=== PATIENT | male | born 1985 | race Caucasian/White ===

== ENCOUNTER 2019-12-17 21:04 | Emergency (ER) | payer OTHER ==
[~2019-12-17] VITALS: Ht 180.3 cm; Wt 96.0 kg
[2019-12-17 21:04] VITALS: BP 140/70
--- NOTE | 2019-12-17 21:11 | PHYS DOC ---
General Adult EDM: Chief Complaint: EARACHE/EAR PAIN HPI: HPI: ' '".. I got ear pain.. Headache. I am worried I got a brain tumor... I been hurting for the last 2 days... My ears buzz... My anabaptist areas hurt really bad... My sinuses feel full... having problems sleeping. ... I decided I feel like to get a brain tumor because I cannot think of anything else this could be..."I don't graduate until I think July... A lot of stress with school recently... 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 Patient has not had any recent overseas travel. Has not had any specific ill contacts. Has not had any recent travel outside the [place] area. Patient is up-to-date with multiple vaccinations. Patient denies any history of immunosuppression, no fevers, no chills, has some mild nasal congestion. Patient is very active physically and does PT regularly. Patient normally follows at [place] for care. No history of trauma.. No specific ill contacts. Review of Systems: Review of Systems: Constitutional: Denies fever or chills Eyes: Denies change in visual acuity HENT: nasal congestion , hearing issues, sinus fullness, Respiratory: Denies cough or shortness of breath Cardiovascular: Denies chest pain or edema GI: Denies abdominal pain, nausea, vomiting, bloody stools or diarrhea : Denies dysuria Musculoskeletal: Denies back pain or joint pain Integument: Denies rash Neurologic: Complains of headache. Denies, focal weakness . Has complaints of hearing sensory changes , buzzing Endocrine: Denies polyuria or polydipsia Lymphatic: Denies swollen glands Psychiatric: Denies depression or anxiety Family History: Family History: No specific father history does not know her mother's medical history. Sister is healthy. Current Medications: Current Meds: See nursing for home meds. Allergies: Allergies: No known drug allergies. Physical Exam: PE: Constitutional: Well developed, well nourished, reports moderate distress, non- toxic appearance. [] HENT: Normocephalic, atraumatic, bilateral external ears normal, oropharynx moist, no oral exudates, nose l swollen turbinates with clear rhinorrhea.. Reports sinus fullness. Reports tenderness over temporal areas bilaterally. No tenderness over temporal artery. Complains of buzzing in ears. Small amount of fluid behind TMs. Eyes: PERRLA, EOMI, conjunctiva normal, no discharge. [] Neck: Normal range of motion, some upper neck muscle tenderness, supple, no stridor. [] Cardiovascular:Heart rate regular rhythm, no murmur [] Lungs & Thorax: Bilateral breath sounds equal at apex on auscultation [] Abdomen: Bowel sounds normal, soft, no tenderness, no masses, no pulsatile masses. [] Skin: Warm, dry, no erythema, no rash. [] Back: No tenderness, no CVA tenderness. [] Extremities: No tenderness, no cyanosis, no clubbing, ROM intact, no edema. [] Neurologic: Alert and oriented X 3, normal motor function, normal sensory function, no focal deficits noted. [] DTRs +2 patellar and brachial. Exchange Administrator equal. No drift. Psychologic: Affect very anxious judgement normal, mood normal. [] EKG: EKG: [] Radiology/Procedures: Radiology/Procedures: [][place] [address] IMAGING REPORT Signed PATIENT: MIRIAN DUNN ACCOUNT: [id number] : 1985 LOCATION: ER AGE: 34 SEX: M EXAM STATUS: REG ER ORD. PHYSICIAN: JUDITH SANCHEZ MD REASON: neuro symptoms PROCEDURE: CT HEAD AND MAXILLOFACIAL WO EXAM: 1. CT HEAD WITHOUT CONTRAST. 2. CT FACIAL BONES WITHOUT CONTRAST. HISTORY: Headache, ear pain, paresthesias. TECHNIQUE: Computed tomography of the head and facial bones was performed without intravenous contrast. One or more of the following individualized dose reduction techniques were utilized for this examination: 1. Automated exposure control. 2. Adjustment of the mA and/or kV according to patient size. 3. Use of iterative reconstruction technique. COMPARISON: None. FINDINGS: There is no intracranial hemorrhage. Smith-white differentiation is preserved. The ventricles are normal in size and position. The temporal bones are unremarkable. The calvarium reveals no suspicious lesions. No facial fractures are identified. The visualized paranasal sinuses appear clear. The orbits are unremarkable. IMPRESSION: 1. No acute intracranial findings. 2. Negative examination of the paranasal sinuses and temporal bones. Electronically signed by: Saloni Calvert MD (12/18/2019 12:00 AM) [facility] DICTATED AND SIGNED BY: GWEN CALVERT MD DATE: 12/18/19 0000 CC: JUDITH SANCHEZ MD; PCP,UNKNOWN ~ Heart Score: Risk Factors: Risk Factors: DM, Current or recent (<one month) smoker, HTN, HLP, family history of CAD, obesity. Risk Scores: Score 0 - 3: 2.5% MACE over next 6 weeks - Discharge Home Score 4 - 6: 20.3% MACE over next 6 weeks - Admit for Clinical Observation Score 7 - 10: 72.7% MACE over next 6 weeks - Early Invasive Strategies Course & Med Decision Making: Course & Med Decision Making Pertinent Labs and Imaging studies reviewed. (See chart for details) Patient follow-up Rd. Take Tylenol and ibuprofen for pain. Follow-up primary care. Return if any concerns. Wear a mask over nose and mouth at all times. Practice social distancing. Return if any concerns. Impression: 1. Suspect tension headache 2. Possible viral syndrome [] Dragon Disclaimer: Kelly Disclaimer: This electronic medical record was generated, in whole or in part, using a voice recognition dictation system. Departure Departure: Disposition: 01 [place] HOME SELF CARE/HOMELESS Condition: STABLE Referrals: PCP,UNKNOWN (PCP) Scripts Hydrocodone/Ibuprofen (HYDROCODONE-IBUPROFEN 7.5-200 ) 1 Each Tablet 1 TAB PO PRN Q6HRS PRN for PAIN, #30 TAB 0 Refills Prov: JUDITH SANCHEZ MD 12/18/19 [place] Disclaimer This chart was dictated in whole or in part using Voice Recognition software in a busy, high-work load, and often noisy Emergency Department environment. It may contain unintended and wholly unrecognized errors or omissions. JUDITH SANCHEZ MD Dec 17, 2019 21:11
--- NOTE | 2019-12-18 00:03 | RAD ---
EXAM: 1. CT HEAD WITHOUT CONTRAST. 2. CT FACIAL BONES WITHOUT CONTRAST. HISTORY: Headache, ear pain, paresthesias. TECHNIQUE: Computed tomography of the head and facial bones was performed without intravenous contrast. One or more of the following individualized dose reduction techniques were utilized for this examination: 1. Automated exposure control. 2. Adjustment of the mA and/or kV according to patient size. 3. Use of iterative reconstruction technique. COMPARISON: None. FINDINGS: There is no intracranial hemorrhage. Smith-white differentiation is preserved. The ventricles are normal in size and position. The temporal bones are unremarkable. The calvarium reveals no suspicious lesions. No facial fractures are identified. The visualized paranasal sinuses appear clear. The orbits are unremarkable. IMPRESSION: 1. No acute intracranial findings. 2. Negative examination of the paranasal sinuses and temporal bones. Electronically signed by: Saloni Calvert MD (12/18/2019 12:00 AM) [facility]
[2019-12-18] MEDS ORDERED: HYDR-1179 PO (00:14)
== END 2019-12-18 00:30 | disposition home or self-care (01) ==
LOC: ER 21:04 → EDBD 21:04 → ER 12-18 00:30
DX: R51.9 Headache, unspecified (principal); R09.81 Nasal congestion; H93.8X3 Other specified disorders of ear, bilateral
CPT/HCPCS: 70450; 70486; 99285-25

== ENCOUNTER 2019-12-19 13:00 | Emergency (ER) | payer OTHER ==
[~2019-12-19] VITALS: Ht 180.3 cm; Wt 98.2 kg
[~2019-12-19 13:00] MED LIST: HYDR-1179 PO
--- NOTE | 2019-12-19 13:40 | PHYS DOC ---
Past History Past Medical History: No Pertinent History Past Surgical History: Other Additional Past Surgical Histo: PRK Alcohol Use: Occasionally General Adult EDM: Chief Complaint: Neck Pain HPI: HPI: 34-year-old male returns to the emergency room with continued neck pain. Patient tells me that it does not really hurt with flexion, he has more pain with extension. He was seen by my colleague 2 days ago. He has had a CT was negative for acute findings. This initially started as a frontal headache but now he mostly has pain in his neck up into the occiput. He denies fever or ch ills. He has no known COVID-19 exposures. 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 He has been eating and drinking normally. Review of Systems: Review of Systems: Constitutional: Denies fever or chills Eyes: Denies change in visual acuity HENT: Posterior neck pain Respiratory: Denies cough or shortness of breath Cardiovascular: Denies chest pain or edema GI: Denies abdominal pain, nausea, vomiting, bloody stools or diarrhea : Denies dysuria Musculoskeletal: Denies back pain or joint pain Integument: Denies rash Neurologic: Denies headache, focal weakness or sensory changes Endocrine: Denies polyuria or polydipsia Lymphatic: Denies swollen glands Psychiatric: Denies depression or anxiety Allergies: Allergies: Allergies Coded Allergies Type Severity Reaction Last Updated Verified No Known Drug Allergies 12/17/19 No Physical Exam: PE: Constitutional: Well developed, well nourished, no acute distress, non-toxic appearance. [] HENT: Normocephalic, atraumatic, bilateral external ears normal, oropharynx moist, no oral exudates, nose normal. [] Eyes: PERRLA, EOMI, conjunctiva normal, no discharge. [] Neck: Normal range of motion, mild posterior cervical tenderness, supple, no stridor. No rigidity. [] Cardiovascular: Heart rate regular rhythm, no murmur [] Lungs & Thorax: Bilateral breath sounds clear to auscultation [] Abdomen: Bowel sounds normal, soft, no tenderness, no masses, no pulsatile masses. [] Skin: Warm, dry, no erythema, no rash. [] Back: No tenderness, no CVA tenderness. [] Extremities: No tenderness, no cyanosis, no clubbing, ROM intact, no edema. [] Neurologic: Alert and oriented X 3, normal motor function, normal sensory function, no focal deficits noted. [] Psychologic: Affect normal, judgement normal, mood normal. [] Current Patient Data: Vital Signs: Vital Signs Date Time Temp Pulse Resp B/P (MAP) Pulse Ox O2 Delivery O2 Flow Rate FiO2 12/19/19 13:10 98.3 91 20 135/70 (91) 96 Room Air EKG: EKG: [] Radiology/Procedures: Radiology/Procedures: [] Impressions: PROCEDURE: CERVICAL SPINE 2-3V STUDY DATE: 12/19/2019 CLINICAL INDICATION / HISTORY: Reason: neck pain / Spl. Instructions: / History: . TECHNIQUE: 3 VIEWS: AP, lateral and odontoid COMPARISON: None FINDINGS: Alignment is within normal limits. There is preservation of the normal cervical lordosis. Vertebral body heights and disc spaces are well maintained. The atlantoaxial joint is well maintained. No fracture or subluxation is identified. Prevertebral and paraspinous soft tissues are unremarkable. IMPRESSION: Normal 3 view C-spine x-ray series. Electronically signed by: Johanne Larson MD (12/19/2019 2:03 PM) [facility] [place] DICTATED AND SIGNED BY: JOHANNE LARSON MD DATE: 12/19/19 1403 CC: LYNDSEY PITTS DO; ALONZO FOSTER DO ~ Heart Score: Risk Factors: Risk Factors: DM, Current or recent (<one month) smoker, HTN, HLP, family history of CAD, obesity. Risk Scores: Score 0 - 3: 2.5% MACE over next 6 weeks - Discharge Home Score 4 - 6: 20.3% MACE over next 6 weeks - Admit for Clinical Observation Score 7 - 10: 72.7% MACE over next 6 weeks - Early Invasive Strategies Course & Med Decision Making: Course & Med Decision Making Pertinent Labs and Imaging studies reviewed. (See chart for details) [] Dragon Disclaimer: Dragon Disclaimer: This electronic medical record was generated, in whole or in part, using a voice recognition dictation system. Departure Departure: Referrals: ALONZO FOSTER DO (PCP) LYNDSEY PITTS DO Dec 19, 2019 13:40
[2019-12-19] MEDS ORDERED: METOCLOPRAMIDE HCL 10 MG/2 ML VIAL. IVP ONE (13:45)
[2019-12-19] MEDS ORDERED: IV NORMAL SALINE 1,000ML 1,000 ML IV ONE (13:45)
[2019-12-19] MEDS ORDERED: KETOROLAC 30 MG/ML VIAL. IVP ONE (13:45)
[2019-12-19] MEDS ORDERED: diphenhydrAMINE 50 MG/ML VIAL IVP ONE (13:45)
[2019-12-19 14:01] LABS: BASO % 1 % (0-3); EOS % 0 % (0-3); HEMATOCRIT 41.4 % (39.0-53.0); HEMOGLOBIN 13.8 g/dL (13.0-17.5); LYMPH # 1.7 x10^3/uL (1.0-4.8); LYMPH % 24 % (24-48); MEAN CORPUSCULAR HEMOGLOBIN 30 pg (25-35); MEAN CORPUSCULAR HGB CONC 33 g/dL (31-37); MEAN CORPUSCULAR VOLUME 90 fL (79-100); MONO # 0.6 x10^3/uL (0.0-1.1); MONO % 8 % (0-9); NEUT # 4.7 x10^3uL (1.8-7.7); NEUT % 67 % (31-73); PLATELET COUNT 247 x10^3/uL (140-400); RED BLOOD COUNT 4.63 x10^6/uL (4.30-5.70); RED CELL DISTRIBUTION WIDTH 14.3 % (11.5-14.5)
--- NOTE | 2019-12-19 14:06 | RAD ---
PROCEDURE: CERVICAL SPINE 2-3V STUDY DATE: 12/19/2019 CLINICAL INDICATION / HISTORY: Reason: neck pain / Spl. Instructions: / History: . TECHNIQUE: 3 VIEWS: AP, lateral and odontoid COMPARISON: None FINDINGS: Alignment is within normal limits. There is preservation of the normal cervical lordosis. Vertebral body heights and disc spaces are well maintained. The atlantoaxial joint is well maintained. No fracture or subluxation is identified. Prevertebral and paraspinous soft tissues are unremarkable. IMPRESSION: Normal 3 view C-spine x-ray series. Electronically signed by: Mahnaz Larson MD (12/19/2019 2:03 PM) [facility] [place]
[2019-12-19 14:11] LABS: CALCIUM 9.3 mg/dL (8.5-10.1); CREATININE 1.2 mg/dL (0.7-1.3); GFR 70.2; POTASSIUM 3.6 mmol/L (3.5-5.1)
[2019-12-19 14:17] LABS: ALBUMIN 4.4 g/dL (3.4-5.0); ALBUMIN/GLOBULIN RATIO 1.2 (1.0-1.7); TOTAL BILIRUBIN 0.6 mg/dL (0.2-1.0); TOTAL PROTEIN 8.2 g/dL (6.4-8.2)
[2019-12-19 14:35] VITALS: BP 131/60
== END 2019-12-19 14:40 | disposition home or self-care (01) ==
LOC: ER 13:00
DX: M54.2 Cervicalgia (principal); R51.9 Headache, unspecified; R20.2 Paresthesia of skin
CPT/HCPCS: 36415; 72040; 80053; 85025; 96361; 96374; 96375; 99284; J1200; J1885; J2765; J7030